=== PATIENT | female | born 1950 | race Two or more races ===

== ENCOUNTER 2017-12-03 00:36 | Emergency (ER) | payer OTHER ==
[~2017-12-03] VITALS: Ht 160 cm; Wt 66.7 kg
== END 2017-12-03 16:57 | disposition home or self-care (01) ==
LOC: ER 00:36
DX: S60.372A Other superficial bite of left thumb, initial encounter (principal); W54.0XXA Bitten by dog, initial encounter; Y93.89 Activity, other specified; Y92.89 Other specified places as the place of occurrence of the external cause; Y99.8 Other external cause status

== ENCOUNTER → 2019-05-08 | Emergency (ER) | payer OTHER ==
[~2019-05-08] VITALS: Ht 157.5 cm; Wt 66.7 kg
[~2019-05-08] MED LIST: NEO-POLYMYXIN-H10 M1; PENTOXIFYLLINE400 MG; SYNTHROID75 MCG; ZESTRIL2.5 MG
== END | disposition home or self-care (01) ==
LOC: ER 02:02
DX: S90.112A Contusion of left great toe without damage to nail, initial encounter (principal); W22.8XXA Striking against or struck by other objects, initial encounter; Y93.89 Activity, other specified; Y92.89 Other specified places as the place of occurrence of the external cause; Y99.8 Other external cause status